=== PATIENT | female | born 1945 | race Caucasian/White ===

== ENCOUNTER → 2017-10-05 | Outpatient (CLI) | payer OTHER ==
[~2017-10-05] MED LIST: ALBUAER2 INH; ALL180 PO; ASPI81TA21 PO; BUDE180I INH; FEXO1TAB49 PO; PLMINUNK INH; PRAVASTATIN PO; VNTHFA/IN INH
--- NOTE | 2017-10-05 13:40 | DIAGNOSTIC IMAGING REPORT ---
CT SCAN OF THE CHEST WITHOUT IV CONTRAST CLINICAL HISTORY: Colon cancer. COMPARISON STUDY: Chest x-ray dated 12/09/2011. Abdominal CT dated 08/08/2012. TECHNIQUE: CT scan of the thorax was performed from the thoracic inlet to the upper abdomen. Images are reviewed in the axial, sagittal, and coronal planes. IV contrast was not administered for this examination as per the referring clinician. A dose lowering technique was utilized adhering to the principles of ALARA. CT DOSE: 337.56 mGycm FINDINGS: Thyroid: Imaged portions of the thyroid gland are normal in size and attenuation. Thoracic aorta: There is atherosclerotic calcification of the thoracic aorta, which is normal in caliber and demonstrates standard 3-vessel arch anatomy. Heart: The heart is normal in size and without pericardial effusion. The coronary arteries are densely calcified. Lungs and pleural spaces: There is no airspace consolidation or pleural effusion. The trachea and central airways are clear. There is a 10 mm groundglass focus in the right lower lobe seen on image #179. A 6 mm groundglass focus is seen in the right upper lobe on image #89. Mediastinum: There are scattered subcentimeter mediastinal lymph nodes. These are not pathologically enlarged by size criteria. Bre: Not well assessed without IV contrast. Axillae: There is no axillary lymphadenopathy. Upper abdomen: There is a tiny hiatal hernia. Cholecystectomy clips are noted. Skeletal structures: The skeletal structures are osteopenic. Degenerative change and mild hyperkyphosis are seen in the thoracic spine. No lytic or blastic bony lesions are seen. A lipoma is incidentally noted in the left shoulder musculature. IMPRESSION: 1. There is no evidence of intrathoracic metastatic disease. 2. There is a 10 mm groundglass lesion in the right lower lobe. This is not typical for metastatic colon cancer. Although this could represent focal inflammation, a low-grade pulmonary neoplasm could also have this appearance. A 3 month follow-up chest CT is recommended for reassessment. 3. A less well-defined 6 mm groundglass focus is seen in the right upper lobe. Differential considerations are the same and this should also be reassessed at follow-up. Electronically signed by: Prabhu Ramirez M.D. 10/05/2017 1:39 PM Dictated Date/Time: 10/05/2017 1:33 PM
== END | disposition home or self-care (01) ==
LOC: C.CTS 13:04
PROVIDERS: ATTEND Internal Medicine Hematology & Oncology
DX: C18.2 Malignant neoplasm of ascending colon (principal)

== ENCOUNTER 2017-10-10 05:07 | Inpatient (IN) | payer OTHER ==
[2017-10-05 12:03] VITALS: BMI 26.0
--- NOTE | 2017-10-05 12:28 | PAT Medication Instructions ---
Service Date Oct 05, 2017. Current Home Medication List Albuterol Hfa (Ventolin Hfa), 2 PUFFS INH Q6H PRN for PRN Budesonide (Inhalation) (Pulmicort Flexhaler), 2 PUFFS INH BID PRN for PRN Fexofenadine Hcl (Verito Allergy), 1 TAB PO PRN [Pravastatin], 10 MG PO QPM Medication Instructions For Your Scheduled Surgery - Hold the following medications the morning of surgery: Fexofenadine Hcl (Verito Allergy), 1 TAB PO PRN - Take the following medications the morning of surgery with a sip of water: Albuterol Hfa (Ventolin Hfa), 2 PUFFS INH Q6H PRN for PRN (if needed) Budesonide (Inhalation) (Pulmicort Flexhaler), 2 PUFFS INH BID PRN for PRN (if needed) - Take the following medications as scheduled the night before surgery: [Pravastatin], 10 MG PO QPM Fexofenadine Hcl (Verito Allergy), 1 TAB PO PRN (if needed) Albuterol Hfa (Ventolin Hfa), 2 PUFFS INH Q6H PRN for PRN (if needed) Budesonide (Inhalation) (Pulmicort Flexhaler), 2 PUFFS INH BID PRN for PRN (if needed) If you have any questions please call us at [phone] or [phone] or [phone]
[2017-10-05 13:42] LABS: BASO % 0.3 %; BASO ABS # 0.02 K/uL (0-0.2); EOS % 2.9 %; EOS ABS # 0.21 K/uL (0-0.5); HEMOGLOBIN 13.5 g/dL (12.0-16.0); IG# 0.01 K/uL (0.00-0.02); LYMPH % 24.8 %; MEAN CELL VOLUME 82.2 fL (80-100); MEAN CORPUSCULAR HEMOGLOBIN 27.1 pg (25-34); MEAN CORPUSCULAR HGB CONC 32.9 g/dl (32-36); MONO % 8.6 %; MONO ABS # 0.62 K/uL (0.11-0.59); NEUT % 63.3 %; NEUT ABS # 4.59 K/uL (1.4-6.5); PLATELET COUNT 299 K/uL (130-400); RED CELL DISTRIBUTION WIDTH CV 13.5 % (11.5-14.5); RED CELL DISTRIBUTION WIDTH SD 40.9 fL (36.4-46.3); WHITE BLOOD COUNT 7.25 K/uL (4.8-10.8)
[2017-10-05 14:19] LABS: ALBUMIN 3.9 gm/dl (3.4-5.0); TOTAL PROTEIN 7.8 gm/dl (6.4-8.2)
[~2017-10-10] VITALS: Ht 170.2 cm; Wt 76.5 kg
[2017-10-10] VITALS (11 sets, daily range): BP systolic 120–149; BP diastolic 63–82; PULSE 74–104; TEMP 36.3–37.2; O2SAT 93–99; Ht 170.2 cm; Wt 76.5 kg
[~2017-10-10 05:07] MED LIST changes: -ALBUAER2 INH; -ALL180 PO; -ASPI81TA21 PO; -PLMINUNK INH
[2017-10-10] MEDS ORDERED: LACTATED RINGER'S 1000ML 1,000 ML IV SCH (06:00)
[2017-10-10] MEDS ORDERED: ACETAMINOPHEN 1000 MG/100 ML IV IV ONE (06:33)
--- NOTE | 2017-10-10 06:33 | History & Physical Bridge Note ---
H&P Re-Evaluation Bridge Note: I have examined the patient, reviewed the History & Physical and in the interval since the performance of the History & Physical I have noted the following changes of clinical significance: No changes noted family at bedside, all questions answered multiple allergies but can take cephalosporin given before dental procedures
[2017-10-10] MEDS ORDERED: MIDAZOLAM HCL 1 MG/ML 2ML VIAL ONE (06:36)
[2017-10-10] MEDS ORDERED: NEOSTIGMINE METHYLSULFATE 5 MG/5 ML SYR ONE (06:36)
[2017-10-10] MEDS ORDERED: HYDROmorphone INJ 2 MG/ML SYR/VIAL ONE (06:36)
[2017-10-10] MEDS ORDERED: FENTANYL CITRATE INJ 50 MCG/1 ML 2 ML VIAL ONE ×4 (06:36→10:01)
[2017-10-10] MEDS ORDERED: ONDANSETRON INJ 2 MG/ML 2 ML VIAL ONE (06:36)
[2017-10-10] MEDS ORDERED: LIDOCAINE HCL 2% 2 ML VIAL (20MG/ML) ONE (06:36)
[2017-10-10] MEDS ORDERED: GLYCOPYRROLATE INJ 0.2 MG/ML VIAL ONE (06:36)
[2017-10-10] MEDS ORDERED: DEXAMETHASONE SOD INJ 4 MG/ML VIAL ONE (06:36)
[2017-10-10] MEDS ORDERED: PROPOFOL IV EMULSION 10 MG/ML 20 ML VIAL IV ONE (06:36)
[2017-10-10] MEDS ORDERED: KETAMINE HCL INJ 50 MG/ML 10 ML VIAL ONE (06:45)
[2017-10-10] MEDS ORDERED: BUPIVACAINE 0.5 % 5 MG/1 ML MPF 30ML VIAL ONE (06:47)
[2017-10-10] MEDS ORDERED: PHENYLEPHRINE 100MCG/ML 5ML SYR ONE (07:30)
[2017-10-10] MEDS ORDERED: EpHEDrine SULFATE INJ 50 MG/ML AMP IV PRN (08:15)
[2017-10-10] MEDS ORDERED: FENTANYL CITRATE INJ 50 MCG/1 ML 2 ML VIAL IV PRN (08:15)
[2017-10-10] MEDS ORDERED: ONDANSETRON INJ 2 MG/ML 2 ML VIAL IV PRN ×2 (08:15→10:00)
[2017-10-10] MEDS ORDERED: MEPERIDINE HCL 25 MG/ML CARP IV PRN (08:15)
[2017-10-10] MEDS ORDERED: LABETALOL HCL IV 5 MG/ML 20ML IV PRN (08:15)
[2017-10-10] MEDS ORDERED: ATROPINE SULFATE 0.1 MG/ML 5ML SYR IV PRN (08:15)
[2017-10-10] MEDS ORDERED: KETOROLAC TROMETHAMINE 30 MG/ML VIAL ONE (09:08)
--- NOTE | 2017-10-10 09:33 | [facility] Post Operative Brief Note ---
Immediate Operative Summary Operative Date Oct 10, 2017. Pre-Operative Diagnosis colon cancer Post-Operative Diagnosis Right Colon Cancer Procedure(s) Performed Laparoscopic Assisted Extended Radical Right Colectomy Surgeon Dr. Silviano Woody Rate Supervisor Surgeon(s) Cait Beth PA-C Estimated Blood Loss 150ml Findings See Below as preop Specimens Fresh: A.) Possible Peritoneal Implant B.) Right Colon Drains 1/4 in alec sub cut Anesthesia Type General
[2017-10-10] MEDS ORDERED: KETOROLAC TROMETHAMINE 30 MG/ML VIAL IV. PRN (10:00)
--- NOTE | 2017-10-10 11:18 | Anesthesiology Progress Note ---
Anesthesia Post Op Note Date & Time Oct 10, 2017 at 11:17 Vital Signs Pain Intensity: 4 Vital Signs Past 12 Hours Date Time Temp Pulse Resp B/P (MAP) Pulse Ox O2 Delivery O2 Flow Rate FiO2 10/10/17 11:06 125/75 10/10/17 11:02 98 17 99 10/10/17 11:02 97 17 10/10/17 11:01 138/63 10/10/17 10:57 86 15 10/10/17 10:57 87 15 99 10/10/17 10:56 121/69 10/10/17 10:54 36.2 10/10/17 10:52 109 14 98 10/10/17 10:52 101 14 10/10/17 10:51 138/73 10/10/17 10:47 95 16 10/10/17 10:47 94 16 98 10/10/17 10:46 123/63 10/10/17 10:42 98 12 10/10/17 10:42 98 12 97 10/10/17 10:41 133/71 10/10/17 10:37 103 13 98 10/10/17 10:37 102 13 10/10/17 10:36 134/61 10/10/17 10:32 97 16 97 10/10/17 10:32 97 16 10/10/17 10:31 133/72 10/10/17 10:27 96 16 10/10/17 10:27 96 16 96 10/10/17 10:26 125/67 10/10/17 10:22 91 13 99 10/10/17 10:22 91 13 10/10/17 10:21 92 12 125/71 99 10/10/17 10:21 92 12 10/10/17 10:16 101 17 10/10/17 10:16 101 17 142/70 99 10/10/17 10:11 89 12 129/67 99 10/10/17 10:11 89 12 10/10/17 10:10 97 12 10/10/17 10:10 97 12 97 10/10/17 10:06 120/57 10/10/17 10:05 66 17 10/10/17 10:05 66 17 99 10/10/17 10:01 119/60 10/10/17 10:00 69 19 98 10/10/17 10:00 70 19 10/10/17 09:56 136/61 10/10/17 09:55 94 15 98 10/10/17 09:55 94 15 10/10/17 09:51 140/68 10/10/17 09:50 36.6 88 12 140/68 98 Oxymask 15 10/10/17 05:49 36.9 85 16 143/74 97 Room Air Notes Mental Status: alert / awake / arousable, participated in evaluation Pt Amnestic to Procedure: Yes Nausea / Vomiting: adequately controlled Pain: adequately controlled Airway Patency, RR, SpO2: stable & adequate BP & HR: stable & adequate Hydration State: stable & adequate Anesthetic Complications: no major complications apparent
--- NOTE | 2017-10-10 11:58 | OPERATIVE REPORT ---
DATE OF OPERATION: 10/10/2017 SURGEON: Dr. Woody. REAL ESTATE CONSULTANT: Cait Beth PA-C. PREOPERATIVE DIAGNOSIS: Biopsy-proven adenocarcinoma ascending colon. POSTOPERATIVE DIAGNOSIS: Same with dense abdominal adhesions. PROCEDURE: Laparoscopic assisted extended right colon resection with primary [id number] anastomosis. SUMMARY: The patient was brought into the operating room theater. Cash catheter had been inserted. The abdomen was prepped with Betadine solution and properly draped. We made a small incision, about an inch and a half long to 2 inches around the umbilicus in a linear fashion, deepened to subcutaneous tissue. We entered the fascia where 0 Vicryl suture was used to control the pneumoperitoneum. We entered the peritoneal cavity under direct visualization with a 5 mm trocar without the sharp edge. CO2 insufflated. We placed a camera into the abdomen. A large omentum was appreciated. Did not see evidence of any dye or tattoo on the abdominal wall or in the parietal peritoneum. We at this point tried to inspect the colon. We could see the sigmoid colon which was grossly normal, because this had an evidence, apparently when she had colonoscopy, they said she had diffuse Crohn's disease, biopsies were taken. In the right upper quadrant, we started from the cecal area going all the way up toward the right upper quadrant. I could not identify either the lesion or the tattoo, it was not obvious from our point. We tried to maneuver the omentum that was adherent to the right upper quadrant area but it was pretty much frozen onto the undersurface of the liver. The patient has had a previous laparoscopic cholecystectomy that apparently was acutely inflamed at the time. At this point, I enlarged the incision, then I converted to an open procedure so we can actually dissect more specifically in the right upper quadrant. We started from the white line of Toldt and the peritoneal area and around the cecum and maneuvered our way up. We brought up the terminal ileum. The appendix was quite long, we were able to bring it back up along with the cecum. We then took our dissection up to the hepatic flexure where we could feel a lesion, an apple core lesion that was just proximal to the hepatic flexure, did not see the tattoo yet. We then dissected out some omental adhesions to the undersurface of the liver until finally we were able to free up the hepatic flexure that was underneath the liver, completely stuck in there, we could see the tattooed zoe. The tattoo was approximately 2 inches away from the lesion. We then dissected out the greater omentum to the middle colic area, completely elevating the right side of colon, the terminal ileum, dissecting out, avoiding the duodenum. There was a small bleeding vessel, a little venous ooze right on top of the duodenal medially which was a pancreatic branch that we needed to ligate with 2-0 silk on multiple times but we got that under control. At this point, we scored the mesentery to the terminal ileum where we divided with a VINNY stapler. The mesentery was taken down all the way to the root of the mesentery to right of middle colic where another VINNY stapler was used to free up the colon. Each points of resection were tied with 2-0 silk and left long to zoe the root of the mesentery. The specimen was removed. At this point, we brought the 2 edges together by first closing the peritoneum with interrupted 3-0 silk suture, then the 2 sides, the stapled side, an end-to-end anastomosis was done by first oversewing the staple line with interrupted 3-0 silk suture, then we did a [id number] 3-0 chromic inner side, 3-0 silk outer layer to complete [id number] ileocolonic anastomosis. Checked for patency, appeared satisfactory. We paid special attention in the quadrants to avoid any tension. We checked line of mesentery, more specifically returned the viscera in normal anatomic position. I placed an NG tube and it was adequate in the stomach at 55 from the naris. The area was then checked for hemostasis, irrigated, and appeared satisfactory. I did not feel anything else in the mesentery and we noticed there was one specific node when we first went in, but I was not sure if this was a metastatic node or some deposit from previous gallbladder, that we sent separately. The abdomen was then closed with interrupted #1 PDS, quarter-inch Sarahi placed subcu, alejandrina for skin edges. Dressing was applied. The procedure was tolerated well by the patient. Estimated blood loss approximately 150 mL. The patient was taken to recovery room in good condition. I attest to the content of the Intraoperative Record and any orders documented therein. Any exception s are noted below.
[2017-10-10] MEDS ORDERED: NURSING VERBAL MED ORDER ONE ×3 (12:00→19:45)
[2017-10-10] MEDS: KETOROLAC TROMETHAMINE 15 MG/ML VIAL IV. PRN ×3 (12:01→22:26)
[2017-10-10] MEDS: LACTATED RINGER'S 1000ML 1,000 ML IV SCH ×2 (12:02→20:15)
[2017-10-10] MEDS ORDERED: ACETAMINOPHEN IV 1000MG/100ML IV PRN (12:15)
[2017-10-10 12:29] LABS: INR 1.1 (0.9-1.1); PTT PATIENT 24.9 SECONDS (21.0-31.0)
[2017-10-10] MEDS: CEFOXITIN IV 2,000 MG in DEXTROSE 5% 50ML 50 ML IV SCH ×2 (13:22→18:05)
[2017-10-10] MEDS ORDERED: NURSING VERBAL MED ORDER STA (13:49)
[2017-10-10] MEDS ORDERED: KETOROLAC TROMETHAMINE 15 MG/ML VIAL IV. ONE (14:15)
[2017-10-10] MEDS ORDERED: LORAZEPAM INJ 0.5 MG in SYRINGE 0.25 ML IV PRN (14:45)
[2017-10-10] MEDS ORDERED: LORAZEPAM INJ 0.5 MG in SYRINGE 0.25 ML IV STA (14:46)
--- NOTE | 2017-10-10 14:59 | Anesthesiology Progress Note ---
Anesthesia Progress Note Date of Service Oct 10, 2017. Progress Notes Called by surgeon for pt c/o pain. Pt reports "anaphylaxis" from morphine administration yrs ago. On further questioning, pt and family describes profound fall in blood pressure related to any narcotic and has thus far have declined narcotic analgesia. She has been treated with ketorolac and iv acetaminophen. (It is noted that pt had fentanyl in OR and PACU without side effects. However, protocol does not permit fentanyl use on Med-surg unit.) I discussed with pt potential for transfer to SICU for fentanyl IV hand cloth examiner administration. I also suggested a small dose of narcotic (e.g. meperidine) be titrated with close monitoring of vitals. Pt declined to consent to either of these options. I then suggested a small dose of sedation to synergize with analgesics. Pt agreed. Lorazepam 0.5 mg IV stat then q8h prn ordered. Notify anesthesiologist special education instructor if further input is required.
[2017-10-10] MEDS: HEPARIN SOD 5000 UNIT/0.5 ML CARP SQ SCH (15:34)
[2017-10-10] MEDS ORDERED: NURSING VERBAL MED ORDER SCH (18:00)
[2017-10-10] MEDS: ACETAMINOPHEN IV 1000MG/100ML IV SCH (18:05)
[2017-10-11] MEDS: HEPARIN SOD 5000 UNIT/0.5 ML CARP SQ SCH ×4 (00:11→23:15)
[2017-10-11] MEDS: ACETAMINOPHEN IV 1000MG/100ML IV SCH ×4 (02:40→18:28)
[2017-10-11 03:27] VITALS: BP 131/62; PULSE 75; TEMP 37.1; O2SAT 96
[2017-10-11] MEDS: LACTATED RINGER'S 1000ML 1,000 ML IV SCH ×2 (04:55→12:24)
[2017-10-11 06:37] LABS: BASO % 0.1 %; BASO ABS # 0.01 K/uL (0-0.2); HEMATOCRIT 33.3 % (37-47); IG# 0.06 K/uL (0.00-0.02); LYMPH ABS # 0.91 K/uL (1.2-3.4); MEAN CORPUSCULAR HEMOGLOBIN 26.8 pg (25-34); MEAN PLATELET VOLUME 9.9 fL (7.4-10.4); MONO % 5.7 %; MONO ABS # 1.03 K/uL (0.11-0.59); NEUT % 88.9 %; NEUT ABS # 16.09 K/uL (1.4-6.5); PLATELET COUNT 272 K/uL (130-400); RED CELL DISTRIBUTION WIDTH CV 13.6 % (11.5-14.5); RED CELL DISTRIBUTION WIDTH SD 40.5 fL (36.4-46.3)
[2017-10-11 07:14] LABS: CALCIUM 8.9 mg/dl (8.5-10.1); CREATININE 0.74 mg/dl (0.60-1.20); POTASSIUM 4.4 mmol/L (3.5-5.1)
[2017-10-11 07:17] VITALS: BP 132/64; PULSE 73; TEMP 36.9; O2SAT 97
--- NOTE | 2017-10-11 07:33 | SURGERY PROGRESS NOTE ---
DATE: 10/11/2017 Miriam is resting comfortably, significant other is at bedside. She is alert, coherent. She had some pain postoperatively yesterday which was sort of expected in the sense THAT SHE IS ALLERGIC TO MULTIPLE ANALGESICS. WE HAD GIVEN HER TORADOL AND ACETAMINOPHEN. We had anesthesia also see her. We checked on her later in the afternoon and seemed to be sleeping. At this point, she is resting comfortably. She has not been out of bed. Intraoperative findings were discussed with her. Her last vitals showed a temperature of 36.9, pulse 73, respirations 16, blood pressure 132/64, O2 sats 97 on room air. Urine output was 400 overnight. NG was minimal, 280, slightly coffee-ground. Her abdomen is completely benign. Laboratory schreiber, BUN is 13, creatinine 0.74, hemoglobin is 11, elevated white count of 18.10 with a left shift. At this point, we will discontinue the NG tube and discontinue the Cash, increase activity, start her on some clear liquids. Hopefully, by getting her around, she may have more relief of her postoperative pain, although at this time she seems to be comfortable.
[2017-10-11 08:00] VITALS: BP 146/60; PULSE 74; TEMP 37; O2SAT 97
--- NOTE | 2017-10-11 08:08 | Anesthesiology Progress Note ---
Anesthesia Post Op Note Date & Time Oct 11, 2017 at 08:07 Vital Signs Pain Intensity: 8.0 Vital Signs Past 12 Hours Date Time Temp Pulse Resp B/P (MAP) Pulse Ox O2 Delivery O2 Flow Rate FiO2 10/11/17 07:17 36.9 73 16 132/64 (86) 97 Room Air 10/11/17 03:27 37.1 75 14 131/62 (85) 96 Nasal Cannula 2.0 10/10/17 23:53 37.2 75 14 132/63 (86) 96 Nasal Cannula 2.0 10/10/17 23:45 Nasal Cannula 2.0 Notes Mental Status: alert / awake / arousable, participated in evaluation Pt Amnestic to Procedure: Yes Nausea / Vomiting: adequately controlled Pain: adequately controlled Airway Patency, RR, SpO2: stable & adequate BP & HR: stable & adequate Hydration State: stable & adequate Anesthetic Complications: no major complications apparent
[2017-10-11] MEDS: KETOROLAC TROMETHAMINE 15 MG/ML VIAL IV. PRN ×2 (08:27→12:24)
--- NOTE | 2017-10-11 10:45 | Clinical Documentation Query ---
CULLEN Brown : CLINICAL DOCUMENTATION QUERY Patient is a 71 year old female who underwent Laparoscopic Assisted Extended Radical Right Colectomy for right colon cancer. Specimen obtained during procedure included "possible peritoneal implant". As appropriate, consider explicit documentation of the nature of this tissue as although implicit, cannot be assumed by the professional medical biller coder. Thank you. In your clinical opinion is this patient being managed for: ( x) (Possible/Suspected) Peritoneum metastasis ( ) Not Agree ( ) Other explanation of clinical findings (Please Explain) ( ) Unable to determine (Please Define) ( ) Need to Discuss The medical record reflects the following clinical findings, treatment, and risk factors. Clinical Indicators: As above Treatment: Pathology pending Risk Factors: Colon cancer Please clarify and document your clinical opinion in the progress notes and discharge summary. Terms such as "probable", "suspected", "likely", "questionable", "possible", or "still to be ruled out" are acceptable. IF IN AGREEMENT, YOU MUST DOCUMENT ABOVE DIAGNOSTIC STATEMENT IN DAILY PROGRESS NOTES AND DISCHARGE SUMMARY. This document is not part of the patient's record. Thank You, Hugh Smith, JAYA [phone]
[2017-10-11 11:12] VITALS: O2SAT 92
[2017-10-11 15:29] VITALS: BP 141/60; PULSE 80; TEMP 37; O2SAT 96
[2017-10-11] MEDS ORDERED: NURSING VERBAL MED ORDER ONE ×2 (16:30→18:15)
[2017-10-11] MEDS: KETOROLAC TROMETHAMINE 15 MG/ML VIAL IV. SCH ×3 (16:32→23:13)
[2017-10-11] MEDS ORDERED: DiphenhydrAMINE HCL 50 MG/ML VIAL IV ONE (18:30)
[2017-10-11] MEDS ORDERED: DiphenhydrAMINE HCL 50 MG/ML VIAL IV PRN (18:30)
[2017-10-11 23:24] VITALS: BP 132/61; PULSE 67; TEMP 37; O2SAT 93
[2017-10-12] MEDS: ACETAMINOPHEN IV 1000MG/100ML IV SCH ×3 (01:59→18:57)
[2017-10-12] MEDS: KETOROLAC TROMETHAMINE 15 MG/ML VIAL IV. SCH (04:27)
[2017-10-12] MEDS ORDERED: FENTANYL 50 MCG/HR TDSY TD SCH (06:15)
[2017-10-12] MEDS: LACTATED RINGER'S 1000ML 1,000 ML IV SCH (06:39)
[2017-10-12 06:42] LABS: BASO % 0.1 %; BASO ABS # 0.01 K/uL (0-0.2); EOS % 0.1 %; EOS ABS # 0.01 K/uL (0-0.5); HEMOGLOBIN 10.3 g/dL (12.0-16.0); IG# 0.04 K/uL (0.00-0.02); LYMPH % 15.6 %; LYMPH ABS # 2.26 K/uL (1.2-3.4); MEAN CELL VOLUME 83.3 fL (80-100); MEAN CORPUSCULAR HGB CONC 31.2 g/dl (32-36); MEAN PLATELET VOLUME 9.9 fL (7.4-10.4); MONO % 7.3 %; MONO ABS # 1.06 K/uL (0.11-0.59); NEUT % 76.6 %; NEUT ABS # 11.09 K/uL (1.4-6.5); PLATELET COUNT 240 K/uL (130-400); RED CELL DISTRIBUTION WIDTH CV 13.9 % (11.5-14.5); RED CELL DISTRIBUTION WIDTH SD 42.4 fL (36.4-46.3); WHITE BLOOD COUNT 14.47 K/uL (4.8-10.8)
--- NOTE | 2017-10-12 06:46 | SURGERY PROGRESS NOTE ---
DATE: 10/12/2017 Miriam is second postoperative day status post laparoscopic assisted right colon resection. She is doing very well. She is having minimal abdominal discomfort at this time. She stated she has passed some flatus and had some liquid stools. The only concern she had is that the Toradol may be causing her some allergy. SHE IS ALLERGIC TO MULTIPLE ANALGESICS. We tried everything. She did have some fentanyl intraoperatively. Anesthesia did not notice any reaction. We will try fentanyl patch and see if we can palliate her. She tolerated some liquids yesterday, will advance it. The laboratory studies this morning is pending. Her abdomen is completely benign. The dressing is changed. She has a Mason in the subQ that we will remove tomorrow. Overall, she is doing very well.
[2017-10-12] MEDS ORDERED: FENTANYL PATCH REMOVE & WASTE SCH (06:59)
[2017-10-12] MEDS ORDERED: FENTANYL 25 MCG/HR TDSY TD SCH (07:00)
[2017-10-12 07:10] LABS: CALCIUM 8.6 mg/dl (8.5-10.1); CREATININE 0.65 mg/dl (0.60-1.20)
[2017-10-12 07:23] VITALS: BP 152/71; PULSE 67; TEMP 36.9; O2SAT 93
[2017-10-12] MEDS: HEPARIN SOD 5000 UNIT/0.5 ML CARP SQ SCH ×3 (07:38→23:41)
[2017-10-12] MEDS: CHECK FENTANYL PATCH PLACEMENT SCH ×3 (07:40→23:40)
[2017-10-12 15:00] VITALS: BP 127/61; PULSE 57; TEMP 36.8; O2SAT 93
[2017-10-12 23:11] VITALS: BP 112/57; PULSE 69; TEMP 36.8; O2SAT 99
[2017-10-13] MEDS: LACTATED RINGER'S 1000ML 1,000 ML IV SCH (02:09)
[2017-10-13] MEDS: ACETAMINOPHEN IV 1000MG/100ML IV SCH (02:12)
[2017-10-13 05:17] LABS: BASO % 0.2 %; BASO ABS # 0.02 K/uL (0-0.2); EOS % 3.2 %; EOS ABS # 0.32 K/uL (0-0.5); HEMATOCRIT 30.1 % (37-47); HEMOGLOBIN 9.3 g/dL (12.0-16.0); IG# 0.03 K/uL (0.00-0.02); LYMPH % 39.8 %; LYMPH ABS # 3.92 K/uL (1.2-3.4); MEAN CELL VOLUME 83.8 fL (80-100); MEAN CORPUSCULAR HEMOGLOBIN 25.9 pg (25-34); MEAN CORPUSCULAR HGB CONC 30.9 g/dl (32-36); MEAN PLATELET VOLUME 9.7 fL (7.4-10.4); MONO % 6.7 %; MONO ABS # 0.66 K/uL (0.11-0.59); NEUT % 49.8 %; NEUT ABS # 4.91 K/uL (1.4-6.5); PLATELET COUNT 227 K/uL (130-400); RED CELL DISTRIBUTION WIDTH CV 13.8 % (11.5-14.5); RED CELL DISTRIBUTION WIDTH SD 42.6 fL (36.4-46.3); WHITE BLOOD COUNT 9.86 K/uL (4.8-10.8)
[2017-10-13 05:43] LABS: CALCIUM 8.3 mg/dl (8.5-10.1); CREATININE 0.59 mg/dl (0.60-1.20); POTASSIUM 4.4 mmol/L (3.5-5.1)
[2017-10-13 07:15] VITALS: BP 144/75; PULSE 67; TEMP 37.1; O2SAT 93
[2017-10-13 07:35] VITALS: O2SAT 93
[2017-10-13] MEDS: CHECK FENTANYL PATCH PLACEMENT SCH (07:37)
[2017-10-13] MEDS: HEPARIN SOD 5000 UNIT/0.5 ML CARP SQ SCH (07:49)
--- NOTE | 2017-10-13 08:03 | SURGERY PROGRESS NOTE ---
DATE: 10/13/2017 Miraim is third postoperative day status post laparoscopic-assisted extended right colon resection for an adenocarcinoma. She has done well, in fact, she has been able to manage her pain with fentanyl patch and some Tylenol. This morning, she is resting comfortably. She feels great. She is tolerating her diet. Her bowels are moving. She feels no real pain. The last vitals showed a temperature of 36.8, pulse 69, respirations 16, blood pressure 112/57, and O2 sats 99 on room air. Laboratory schreiber, BUN is 13, creatinine is 0.59, hemoglobin has dropped down to about 9.3, this is part dilutional and part loss intraoperatively. She is probably 4 liters overloaded, but she is diuresing well and I expect that would come up. She is not lightheaded when she gets up. Her abdomen is completely benign. The Sarahi from the subQ was removed, redressed. From my point of view, we will check her again later this afternoon, but she could probably be discharged. Instructions were to see her back in the office in [address] She should not drive for 1 week. Do not lift anything heavier than 10 pounds. Her path report is pending. The other issue is apparently she was given some medicine by the deli cutter slicer at the time of the initial colonoscopy, random biopsy of the colon. They thought she had Crohn's colitis. She had no real symptoms of that preoperatively. She really has not experienced anything postoperatively and I would wait for the final path before treating pt for Crohn 's. GISELLE
--- NOTE | 2017-10-13 08:33 | Discharge Instructions ---
Discharge Instructions Date of Service Oct 13, 2017. Admission Reason for Admission: Adenocarcinoma Of Colon Discharge Discharge Diagnosis / Problem: right colectomy Discharge Goals Goal(s): Improve disease control Activity Recommendations Activity Limitations: as noted below Lifting Limitations: no more than 10 pounds Shower/Bathe: no limitations Driving or Machine Use: resume 3 days after discharge . Instructions / Follow-Up Instructions / Follow-Up Dr. Woody in 1 week, call [phone] to schedule Current Hospital Diet Patient's current hospital diet: Low Fiber Diet Discharge Diet Recommended Diet: Regular Diet Procedures Procedures Performed: Laparoscopic Assisted Extended Radical Right Colectomy Pending Studies Studies pending at discharge: yes List of pending studies: pathology Medical Emergencies . Who to Call and When: Medical Emergencies: If at any time you feel your situation is an emergency, please call 911 immediately. . Non-Emergent Contact Non-Emergency issues call your: Surgeon Call Non-Emergent contact if: you have a fever, temperature is above 101.5, your pain is not controlled, wound has increased drainage, wound has increased redness, you have any medication questions . "Provider Documentation" section prepared by Lexa Lord. . [place] Drug Monitoring Program Search Results: no issues identified
[2017-10-13] MEDS: ACETAMINOPHEN 325 MG TAB PO SCH ×2 (08:44→11:30)
[2017-10-13 09:29] VITALS: BP 144/75; PULSE 67; TEMP 37.1; O2SAT 93
--- NOTE | 2017-10-16 11:20 | DISCHARGE SUMMARY ---
PRIMARY DISCHARGE DIAGNOSES: 1. Adenocarcinoma, right colon. 2. Postoperative anemia. SECONDARY DISCHARGE DIAGNOSES: 1. Asthma. 2. Dyslipidemia. PROCEDURE PERFORMED: Laparoscopic-assisted extended right colon resection with primary [id number] anastomosis. HOSPITAL COURSE: The patient is a 72-year-old female with biopsy proven adenocarcinoma of the right colon, brought in through same day and taken to the operating room for right hemicolectomy. The procedure was well tolerated. She was transferred to the surgical floor. Nasogastric tube was removed on postoperative day 1. She was started on clear liquids. She HAS MULTIPLE ALLERGIES, had been given Toradol postoperatively. She developed some itching after a dose of Toradol, which was then discontinued. She was put on a fentanyl patch on postoperative day 2. She had tolerated fentanyl intraoperatively. By that time, she had some returning bowel function, was having liquid bowel movements. She was able to tolerate an advancing diet over the next day. On postoperative day 3, she was tolerating regular diet. Her pain was managed with a fentanyl patch. Sarahi drain was removed from the incision. Her hemoglobin had drifted to 9 but she remained asymptomatic and her vitals were stable. She remained in positive fluid balance also. She did not require transfusion. She was stable for discharge in the afternoon. DISCHARGE INSTRUCTIONS: Discharge home. Follow up with Dr. Woody in 1 week. DISCHARGE MEDICATIONS: Continue her current fentanyl patch, which can be removed on Monday morning. She may take Tylenol or ibuprofen as needed. Continue her home medications, Ventolin 2 puffs q. 6 hours as needed, Pulmicort 2 puffs b.i.d. as needed, Verito 180 mg daily, and pravastatin 10 mg daily. PATHOLOGY: Right colon showed a 4.5-cm poorly differentiated adenocarcinoma that invaded through the muscularis propria into the pericolic soft tissue. Margins were uninvolved. Two lymph nodes contained metastatic disease (10/05) . MTDD
== END 2017-10-13 16:39 | disposition home or self-care (01) | DRG 330 ==
LOC: C.ACU 05:07 → C.MSW 06:20 → ENRESERV 10:18
PROVIDERS: ADMIT Surgery; ATTEND Surgery
PROC: 0WBH0ZX Excision of Retroperitoneum, Open Approach, Diagnostic (ICD-10-PCS; principal; 2017-10-10 07:00)
PROC: 0DTF0ZZ Resection of Right Large Intestine, Open Approach (ICD-10-PCS; principal; 2017-10-10 07:00)
DX: C18.2 Malignant neoplasm of ascending colon (principal); C77.2 Secondary and unspecified malignant neoplasm of intra-abdominal lymph nodes; L29.9 Pruritus, unspecified; T40.4X5A Adverse effect of other synthetic narcotics, initial encounter; D64.9 Anemia, unspecified; Z53.31 Laparoscopic surgical procedure converted to open procedure; J45.909 Unspecified asthma, uncomplicated; E78.5 Hyperlipidemia, unspecified; Z79.899 Other long term (current) drug therapy; Z88.0 Allergy status to penicillin; Z88.1 Allergy status to other antibiotic agents; Z88.2 Allergy status to sulfonamides; Z88.5 Allergy status to narcotic agent; Z82.49 Family history of ischemic heart disease and other diseases of the circulatory system; Z82.3 Family history of stroke

== ENCOUNTER → 2017-11-07 | Day surgery (SDC) | payer OTHER ==
[2017-11-03 10:07] VITALS: Ht 170.2 cm; Wt 70.9 kg
[~2017-11-07] VITALS: Ht 170.2 cm; Wt 70.9 kg
[~2017-11-07] MED LIST changes: +ATROPINE SULFATE 0.1 MG/ML 5ML SYR IV PRN; +BACITRACIN 50000 UNIT VIAL ONE; +EpHEDrine SULFATE INJ 50 MG/ML AMP IV PRN; +FENTANYL CITRATE INJ 50 MCG/1 ML 2 ML VIAL IV PRN; +FENTANYL CITRATE INJ 50 MCG/1 ML 2 ML VIAL ONE; +IBUPROFEN 600 MG TAB ONE; +LACTATED RINGER'S 1000ML 1,000 ML IV SCH; +LIDOCAINE HCL 1% 20 ML VIAL ONE; +LIDOCAINE HCL 2% 2 ML VIAL (20MG/ML) ONE; +MIDAZOLAM HCL 1 MG/ML 2ML VIAL ONE; +NURSING VERBAL MED ORDER ONE; +ONDANSETRON INJ 2 MG/ML 2 ML VIAL IV PRN; +ONDANSETRON INJ 2 MG/ML 2 ML VIAL ONE; +OXYC-57 PO; +OXYCODONE/ACETAMINOPHEN 5-325 TAB PO PRN; -PRAVASTATIN PO; +PROPOFOL IV EMULSION 10 MG/ML 20 ML VIAL IV ONE; +PRVC/10 PO
[2017-11-07 07:20] VITALS: BP 129/70; PULSE 103; TEMP 36.7; O2SAT 99
--- NOTE | 2017-11-07 08:01 | Discharge Instructions ---
Discharge Instructions Date of Service Nov 07, 2017. Visit Reason for Visit: Adenocarcinoma Of Colon Discharge Discharge Diagnosis / Problem: A-port Discharge Goals Goal(s): Therapeutic intervention Activity Recommendations Activity Limitations: resume your previous activity Shower/Bathe: tomorrow Anesthesia . Post Anesthesia Instructions: If you have had General Anesthesia or IV Sedation: * Do not drive today. * Resume driving when surgeon permits. * Do not make important decisions or sign legal documents today. * Call surgeon for: 1. Temperature elevations greater than 101 degrees F. 2. Uncontrollable pain. 3. Excessive bleeding. 4. Persistent nausea and vomiting. 5. Medication intolerance (nausea, vomiting or rash). * For nausea and vomiting use only clear liquids such as: tea, soda, bouillon until nausea subsides, then gradually increase diet as tolerated. * If you have any concerns or questions, call your surgeon's office. If physician is unavailable and it is an emergency, call 911 or go to the nearest emergency room. . Instructions / Follow-Up Instructions / Follow-Up Dr. Woody as needed, call [phone] if you any questions It is OK for port to be used Diet Recommendations Recommended Home Diet: no limitations Pending Studies Studies pending at discharge: no Medical Emergencies . Who to Call and When: Medical Emergencies: If at any time you feel your situation is an emergency, please call 911 immediately. . Non-Emergent Contact Non-Emergency issues call your: Surgeon Call Non-Emergent contact if: you have a fever, temperature is above 101.5, your pain is not controlled, wound has increased redness, wound has increased pain . . "Provider Documentation" section prepared by Lexa Lord. .
--- NOTE | 2017-11-07 08:06 | History & Physical Bridge Note ---
H&P Re-Evaluation Bridge Note: I have examined the patient, reviewed the History & Physical and in the interval since the performance of the History & Physical I have noted the following changes of clinical significance: No changes noted will proceed with port placement for chemo, pt a going to [facility] monday for second opinion
--- NOTE | 2017-11-07 08:30 | History and Physical ---
History & Physical Date Nov 07, 2017. Chief Complaint colon cancer need for chemo rx here for port placement History of Present Illness The patient is a 72 year old female here for port placement for chemo Past Medical/Surgical History Surgical Problems: (1) S/P small bowel resection Additional History Hepatic Disease: No Endocrine Disorder: No Kidney Disease: No Hypertension: No Heart Disease: No Bleeding Tendencies: No Infectious Diseases: No Allergies Coded Allergies: Codeine (Verified Allergy, Severe, ANAPHYLAXISIS, 11/07/17) Tramadol (Verified Allergy, Severe, "CODED"-ANAPHYLAXISIS, 11/07/17) Ciprofloxacin (Verified Allergy, Unknown, IRRITATION TO IV SITE-RASH, 11/07) PT EXPERIENCED REDNESS, SWELLING, AND ITCHING TO IV SITE WHILE INFUSING IV CIPRO. IRRITATION HAD RESOLVED AFTER INFUSION STOPPED. Morphine and Related (Verified Allergy, Unknown, ANAPHYLAXISIS, 11/07/17) Penicillins (Verified Allergy, Unknown, HIVES, 11/07/17) Sulfa Drugs (Verified Allergy, Unknown, HIVES, 11/07/17) Home Medications Scheduled Pravastatin Sod (Pravastatin Sodium), 10 MG PO HS Scheduled PRN Albuterol Hfa (Ventolin Hfa), 2 PUFFS INH Q6H PRN for PRN Budesonide (Inhalation) (Pulmicort Flexhaler), 2 PUFFS INH BID PRN for PRN Fexofenadine Hcl (Verito Allergy), 1 TAB PO DAILY PRN for Allergic Reaction Oxycodone/Acetaminophen 5MG/325MG (Percocet 5MG/325MG), 1-2 TABLET PO Q4H PRN for Pain Physical Examination Skin: warm/dry, no rash Eyes: normal inspection, EOMI, sclerae normal ENT: normal ENT inspection, pharynx normal Head: normocephalic, atraumatic Neck: supple, no adenopathy, trachea midline Respiratory/Chest: lungs clear, normal breath sounds, no respiratory distress Cardiovascular: regular rate, rhythm, no edema, no murmur Abdomen / GI: + pertinent finding (midline periumbilical incision healed well) Back: normal inspection Extremities: normal inspection, normal range of motion Neurologic/Psych: no motor/sensory deficits, alert, normal reflexes, oriented x 3 Diagnosis colon cancer need for chemo here for port placement Plan of Treatment port placement r and c explained to pt and daughter (nurse)
--- NOTE | 2017-11-07 09:50 | [facility] Post Operative Brief Note ---
Immediate Operative Summary Operative Date Nov 07, 2017. Pre-Operative Diagnosis Need for Long-Term Intravenous Access Post-Operative Diagnosis Need for Long-Term Intravenous Access Procedure(s) Performed Insertion of Infusaport Left Internal Jugular Surgeon Dr. Woody Circuitry Negative Inspector Surgeon(s) none Estimated Blood Loss 20ML Findings See Below as preop Specimens none per surgeon Anesthesia Type MAC
--- NOTE | 2017-11-07 10:18 | Anesthesiology Progress Note ---
Anesthesia Post Op Note Date & Time Nov 07, 2017 at 10:18 Vital Signs Pain Intensity: 0 Vital Signs Past 12 Hours Date Time Temp Pulse Resp B/P (MAP) Pulse Ox O2 Delivery O2 Flow Rate FiO2 11/07/17 10:15 36.4 77 16 130/71 99 Room Air 11/07/17 10:05 82 16 132/66 96 Room Air 11/07/17 09:55 36.4 88 16 121/70 98 Room Air 11/07/17 07:20 36.7 103 18 129/70 (89) 99 Room Air Notes Mental Status: alert / awake / arousable, participated in evaluation Pt Amnestic to Procedure: Yes Nausea / Vomiting: adequately controlled Pain: adequately controlled Airway Patency, RR, SpO2: stable & adequate BP & HR: stable & adequate Hydration State: stable & adequate Anesthetic Complications: no major complications apparent
[2017-11-07 10:25] VITALS: BP 134/66; PULSE 110; TEMP 36.5; O2SAT 100
--- NOTE | 2017-11-07 10:26 | DIAGNOSTIC IMAGING REPORT ---
CHEST ONE VIEW PORTABLE CLINICAL HISTORY: port placement COMPARISON STUDY: Chest CT October 05, 2017. FINDINGS: There is no pneumothorax following placement of a left internal jugular [id number]. Catheter is intact. Catheter tip projects over the cavoatrial junction or proximal right atrium. There is no evidence for pulmonary edema. No consolidation is present. There are cholecystectomy clips. IMPRESSION: No pneumothorax following placement of a left internal jugular [id number]. Electronically signed by: nAshul Nuñez M.D. 11/07/2017 10:24 AM Dictated Date/Time: 11/07/2017 10:23 AM
--- NOTE | 2017-11-07 10:48 | OPERATIVE REPORT ---
DATE OF OPERATION: 11/07/2017 SURGEON: Dr. Woody. PREOPERATIVE DIAGNOSIS: Adenocarcinoma of the colon, need for chemotherapy. POSTOPERATIVE DIAGNOSIS: Same. PROCEDURE: A-port placement, MRI compatible, in the left internal jugular. SUMMARY: The patient was brought into the operating room theater, roll placed underneath her shoulders. Left chest and neck were prepped with Betadine scrubbing solution and properly draped. Systemic antibiotics were given. Local anesthetic 1% Xylocaine with epinephrine used to infiltrate the angle of the clavicle. Placed the patient in Trendelenburg position. We tried to access the subclavian vein x2 with very little return appreciated as far as venous return. At this point, we went on and did the internal jugular stick by using more local between 2 heads of sternocleidomastoid using a small 23-gauge needle to try to identify the vein, followed by the larger needle, easily appreciated this internal jugular, followed by the guidewire. This guidewire we could see going into the superior vena cava in the right atrium. At this point, we enlarged the incision a little bit to place the metal tunneler through another incision that was made just inferior to the cephalic deltopectoral groove. We had attempted prior to the internal jugular to cut down on the deltopectoral groove but this was pretty much unrecognizable as far as anatomical area. We did create a pocket up the reservoir underneath the incision that we had made. We passed a metal tunneler from that incision up to the incision up in the neck area and passed the catheter through there and then placed an introducer under direct visualization fluoroscopically. Once this had been performed, we tried passing the catheter through the introducer but it met with resistance, we were unable to really advance it beyond the tip of the introducer. Fluoroscopically, it appeared to be just inferior to the clavicle. At this point then, I removed the introducer and tried again, waited for a while and tried to dissect out further down and identified the deltopectoral groove which again we found very little evidence of. My suspicion at this time given this is that the patient may have had some injury to the clavicle in the remote past. Although radiographically, when we were imaging, it seemed like the left clavicle appeared to be higher than the right in general. At this point then, I reaccessed the internal jugular again in a similar fashion, placed the guidewire in superior vena cava, and then placed the introducer, followed by the catheter, positioning it without any difficulty. Fluoroscopically, it seemed to be going into the brachiocephalic area where it tunneled back on itself. At this point, I cut the catheter which was coming out of the incision on the left anterior chest wall, cut it to about 30 cm, placed a guidewire through the catheter, and with this, I was able to direct the catheter down into the superior vena cava right atrial area. At this point, I was happy with the positioning, the patient was low Trendelenburg. We cut the catheter about 28 cm, placed a black bolster in the catheter and attached to the reservoir. We aspirated and flushed easily. At this point, we then placed the reservoir in a previously made pocket, sutured it in 3 places with nylon suture. We could easily palpate the prongs of the reservoir since we had defatted some of the subcutaneous tissue. We closed the wound in multiple layers with 2-0 and 3-0 Dexon, 4-0 Monocryl. Steri-Strips applied. Prior to leaving the room, we were able to access and flush the catheter without any problem. We did note that inferior to the 3 prongs, there was a little sharp easily palpated through the skin, although it did not come through skin, I suspect this was the nylon knot that was hold to secure the catheter and I did tell the family about this. The procedure was tolerated well, taken to recovery in good condition. Chest x-ray is pending. I attest to the content of the Intraoperative Record and any orders documented therein. Any exception s are noted below.
[2017-11-07 10:55] VITALS: BP 136/68; PULSE 100; TEMP 36.3; O2SAT 99
== END | disposition home or self-care (01) ==
LOC: C.ACU 06:40
PROVIDERS: ATTEND Surgery
DX: C26.0 Malignant neoplasm of intestinal tract, part unspecified (principal); Z88.5 Allergy status to narcotic agent; Z88.1 Allergy status to other antibiotic agents; Z88.0 Allergy status to penicillin; Z88.2 Allergy status to sulfonamides; Z88.8 Allergy status to other drugs, medicaments and biological substances

== ENCOUNTER 2018-01-02 22:45 | Observation (INO) | payer OTHER ==
[~2018-01-02] VITALS: Ht 172.7 cm; Wt 65.2 kg
[~2018-01-02 22:45] MED LIST changes: -ATROPINE SULFATE 0.1 MG/ML 5ML SYR IV PRN; -BACITRACIN 50000 UNIT VIAL ONE; -EpHEDrine SULFATE INJ 50 MG/ML AMP IV PRN; -FENTANYL CITRATE INJ 50 MCG/1 ML 2 ML VIAL IV PRN; -FENTANYL CITRATE INJ 50 MCG/1 ML 2 ML VIAL ONE; -IBUPROFEN 600 MG TAB ONE; -LACTATED RINGER'S 1000ML 1,000 ML IV SCH; -LIDOCAINE HCL 1% 20 ML VIAL ONE; -LIDOCAINE HCL 2% 2 ML VIAL (20MG/ML) ONE; -MIDAZOLAM HCL 1 MG/ML 2ML VIAL ONE; -NURSING VERBAL MED ORDER ONE; -ONDANSETRON INJ 2 MG/ML 2 ML VIAL IV PRN; -ONDANSETRON INJ 2 MG/ML 2 ML VIAL ONE; -OXYC-57 PO; -OXYCODONE/ACETAMINOPHEN 5-325 TAB PO PRN; -PROPOFOL IV EMULSION 10 MG/ML 20 ML VIAL IV ONE
[2018-01-02] MEDS ORDERED: PROMETHAZINE HCL INJ 12.5 MG in SODIUM CHLORIDE 0.9% 50ML 50 ML IV STA (23:23)
[2018-01-02] MEDS ORDERED: SODIUM CHLORIDE 0.9% 1000ML 1,000 ML IV STA (23:23)
[2018-01-02] MEDS ORDERED: ACETAMINOPHEN IV 100 ML IV STA (23:23)
[2018-01-02] MEDS ORDERED: OPTIRAY 320 IV PRN (23:30)
[2018-01-02] MEDS ORDERED: ONDA4TAB46 PO (23:31)
[2018-01-02] MEDS ORDERED: PROC10TA PO (23:32)
[2018-01-02 23:58] LABS: HEMATOCRIT 36.1 % (37-47); HEMOGLOBIN 11.6 g/dL (12.0-16.0); MEAN CELL VOLUME 74.7 fL (80-100); MEAN CORPUSCULAR HGB CONC 32.1 g/dl (32-36); MEAN PLATELET VOLUME 9.1 fL (7.4-10.4); NUCLEATED RED BLOOD CELL ABS 0.02 K/uL (0-0); PLATELET COUNT 207 K/uL (130-400); RED CELL DISTRIBUTION WIDTH CV 17.4 % (11.5-14.5); RED CELL DISTRIBUTION WIDTH SD 45.3 fL (36.4-46.3); WHITE BLOOD COUNT 9.33 K/uL (4.8-10.8)
[2018-01-03 00:06] LABS: INR 1.2 (0.9-1.1)
[2018-01-03 00:34] LABS: BASO % 0.2 %; BASO ABS # 0.02 K/uL (0-0.2); EOS % 0.1 %; EOS ABS # 0.01 K/uL (0-0.5); IG# 0.04 K/uL (0.00-0.02); LYMPH % 16.6 %; LYMPH ABS # 1.55 K/uL (1.2-3.4); MONO % 11.7 %; MONO ABS # 1.09 K/uL (0.11-0.59); NEUT ABS # 6.62 K/uL (1.4-6.5)
[2018-01-03 00:39] LABS: ALBUMIN 3.1 gm/dl (3.4-5.0); CALCIUM 8.3 mg/dl (8.5-10.1); CREATININE 0.48 mg/dl (0.60-1.20); PHOSPHORUS 2.3 mg/dl (2.5-4.9); POTASSIUM 3.9 mmol/L (3.5-5.1); TOTAL PROTEIN 7.1 gm/dl (6.4-8.2)
[2018-01-03] MEDS ORDERED: ASPIRIN/ALUM/MAGNES/CAL CARB 325 MG TAB PO STA (02:28)
[2018-01-03] MEDS ORDERED: PROMETHAZINE HCL INJ 12.5 MG in SODIUM CHLORIDE 0.9% 50ML 50 ML IV PRN (03:00)
[2018-01-03] MEDS ORDERED: ONDANSETRON INJ 2 MG/ML 2 ML VIAL IV PRN (03:00)
[2018-01-03] MEDS ORDERED: MAGNESIUM HYDROXIDE SUSP 30 ML UDC PO PRN (03:00)
[2018-01-03] MEDS ORDERED: BUDESONIDE INH PRN (03:00)
[2018-01-03] MEDS ORDERED: ALUMINUM/MAGNESIUM/SIMETH (MAALOX MAX) 30 ML UDC PO PRN (03:00)
[2018-01-03] MEDS ORDERED: FEXOFENADINE HCL 180 MG TAB PO PRN (03:00)
[2018-01-03] MEDS ORDERED: ALBUTEROL HFA 8 GM INHALER INH PRN (03:00)
[2018-01-03] MEDS ORDERED: POLYETHYLENE (MIRALAX) 17 GM PACK PO PRN (03:00)
--- NOTE | 2018-01-03 03:26 | History and Physical ---
History & Physical Date & Time of Service: January 03, 2018 at 03:00 Chief Complaint: Vomiting, Nausea, Ab Pain Post Chemo Primary Care Physician: No Doctor, Assigned History of Present Illness Source: patient, hospital records, other 72 y/o F Hx HPL, asthma, colon CA currently receiving chemotherapy. The pt developed nausea and then vomiting following recent chemotherapy. This persisted for several hours prompting her to visit the ER. Administration of Zofran and Compazine led to marginal improvement. Initial labs revealed an elevated troponin. She denies any related symptoms such as CP or SOB and denies a history of cardiovascular disease. Per her oncologist, her current chemo regimen is not associated with cardiotoxicity. Past Medical/Surgical History 1) Colon cancer 2) Asthma - not currently treated 3) HPL Surgical 1) Small bowel resection Family History No pertinent family history Social History Smoking Status: Never Smoker Drug Use: none Marital Status: in relationship Housing status: lives with significant other Occupational Status: retired Immunizations History of Influenza Vaccine: Unknown History of Tetanus Vaccine?: Unknown History of Pneumococcal: Unknown History of Hepatitis B Vaccine: Unknown Allergies Coded Allergies: Codeine (Verified Allergy, Severe, ANAPHYLAXISIS, 01/02/18) Tramadol (Verified Allergy, Severe, "CODED"-ANAPHYLAXISIS, 01/02/18) Ciprofloxacin (Verified Allergy, Unknown, IRRITATION TO IV SITE-RASH, 01/02) PT EXPERIENCED REDNESS, SWELLING, AND ITCHING TO IV SITE WHILE INFUSING IV CIPRO. IRRITATION HAD RESOLVED AFTER INFUSION STOPPED. Morphine and Related (Verified Allergy, Unknown, ANAPHYLAXISIS, 01/02/18) Penicillins (Verified Allergy, Unknown, HIVES, 01/02/18) Sulfa Drugs (Verified Allergy, Unknown, HIVES, 01/02/18) Home Medications Scheduled Pravastatin Sod (Pravastatin Sodium), 10 MG PO HS Prochlorperazine Maleate (Compazine), Unknown Dose PO DIRECTED Scheduled PRN Albuterol Hfa (Ventolin Hfa), 2 PUFFS INH Q6H PRN for PRN Budesonide (Inhalation) (Pulmicort Flexhaler), 2 PUFFS INH BID PRN for PRN Fexofenadine Hcl (Verito Allergy), 1 TAB PO DAILY PRN for Allergic Reaction Ondansetron Hcl (Zofran), Unknown Dose PO DIRECTED PRN for Nausea Review of Systems Constitutional: No fever, No chills, No sweats Eyes: No worsening of vision ENT: No hearing loss, No unusual epistaxis, No nasal symptoms Respiratory: No cough, No sputum, No wheezing Cardiovascular: No chest pain, No orthopnea, No PND Abdomen: + nausea, + vomiting Musculoskeletal: No joint pain Genitourinary - Female: No dysuria, No urinary frequency, No urinary urgency Neurologic: No memory loss, No paralysis Psychiatric: No depression symptoms Endocrine: No fatigue Hematologic / Lymphatic: No abnormal bleeding/bruising, No clotting problems Integumentary: No rash Allergic / Immunologic: No environmental allergies Physical Exam Vital Signs Date Time Temp Pulse Resp B/P (MAP) Pulse Ox O2 Delivery O2 Flow Rate FiO2 01/03/18 01:30 85 20 175/70 96 Room Air 01/03/18 01:23 37.3 01/02/18 22:48 38.0 112 18 149/80 95 Room Air General Appearance: WD/WN, no apparent distress Head: normocephalic Eyes: normal inspection ENT: normal ENT inspection, pharynx normal Neck: supple, no JVD Respiratory/Chest: chest non-tender, lungs clear, normal breath sounds Cardiovascular: regular rate, rhythm, no edema, no gallop Abdomen/GI: normal bowel sounds, non tender, soft Back: normal inspection, no CVA tenderness Extremities/Musculoskelatal: normal inspection, no calf tenderness, normal capillary refill Neurologic/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4 fL Neutrophils (%) (Auto) 71.0 % Lymphocytes (%) (Auto) 16.6 % Monocytes (%) (Auto) 11.7 % Eosinophils (%) (Auto) 0.1 % Basophils (%) (Auto) 0.2 % Neutrophils # (Auto) 6.62 1.4-6.5 K/uL Lymphocytes # (Auto) 1.55 1.2-3.4 K/uL Monocytes # (Auto) 1.09 0.11-0.59 K/uL Eosinophils # (Auto) 0.01 0-0.5 K/uL Basophils # (Auto) 0.02 0-0.2 K/uL RDW Standard Deviation 45.3 36.4-46.3 fL RDW Coefficient of Variation 17.4 11.5-14.5 % Immature Granulocyte % (Auto) 0.4 % Immature Granulocyte # (Auto) 0.04 0.00-0.02 K/uL Nucleated RBC Absolute Count (auto) 0.02 0-0 K/uL Nucleated Red Blood Cells % 0.3 % Ovalocytes 1+ Prothrombin Time 12.7 9.0-12.0 SECONDS Prothromb Time International Ratio 1.2 0.9-1.1 Sodium Level 135 136-145 mmol/L Potassium Level 3.9 3.5-5.1 mmol/L Chloride Level 103 98-107 mmol/L Carbon Dioxide Level 23 21-32 mmol/L Anion Gap 9.0 3-11 mmol/L Blood Urea Nitrogen 6 7-18 mg/dl Creatinine 0.48 0.60-1.20 mg/dl Est Creatinine Clear Calc Drug Dose 110.0 ml/min Estimated GFR () 115.2 Estimated GFR (Non- 99.4 BUN/Creatinine Ratio 11.7 10-20 Random Glucose 103 70-99 mg/dl Calcium Level 8.3 8.5-10.1 mg/dl Phosphorus Level 2.3 2.5-4.9 mg/dl Magnesium Level 1.8 1.8-2.4 mg/dl Total Bilirubin 0.7 0.2-1 mg/dl Aspartate Amino Transf (AST/SGOT) 29 15-37 U/L Alanine Aminotransferase (ALT/SGPT) 17 12-78 U/L Alkaline Phosphatase 115 45-117 U/L Troponin I 0.082 0-0.045 ng/ml Total Protein 7.1 6.4-8.2 gm/dl Albumin 3.1 3.4-5.0 gm/dl Globulin 4.0 2.5-4.0 gm/dl Albumin/Globulin Ratio 0.8 0.9-2 Lipase 107 73-393 U/L Urine Color YELLOW Urine Appearance CLEAR CLEAR Urine pH 7.0 4.5-7.5 Urine Specific Haynes 1.016 1.000-1.030 Urine Protein NEG NEG Urine Glucose (UA) NEG NEG Urine Ketones 1+ NEG Urine Occult Blood NEG NEG Urine Nitrite NEG NEG Urine Bilirubin NEG NEG Urine Urobilinogen NEG NEG Urine Leukocyte Esterase NEG NEG Microbiology Results 01/02/18 Blood Culture, Received Pending 01/02/18 Blood Culture, Received Pending Normal EKG Impression Assessment and Plan 72 y/o F Hx HPL, colon CA currently receiving chemotherapy. The pt developed nausea and then vomiting following recent chemotherapy. This persisted for several hours prompting her to visit the ER. Administration of Zofran and Compazine led to marginal improvement. Initial labs revealed an elevated troponin. She denies any related symptoms such as CP or SOB and denies a history of cardiovascular disease. Per her oncologist, her current chemo regimen is not associated with cardiotoxicity. 1) Nausea and vomiting - pt placed on IVF, clear diet and antiemetics as needed. Initial EKG does not show QT prolongation, however, this should be rechecked if she remains hospitalized over a day. 2) Elevated trop - etiology is not clear. An echo will be obtained to evaluate for wall motion abnorms. She will be assigned to telemetry and we will trend her troponin. ASA will be provided as tolerated and we will increase her statin dose. 3) HPL - cont Zocor 4) Colon CA - receives Avastin, Oxyplatinum, 5 FU - has been tolerating well - f /u with oncology as outpt Full code Heparin prophylaxis Total time for this admit including review of labs, meds, imaging, records - discussion wioth pt and ER attending - 33 min Resuscitation Status VTE Prophylaxis Will order VTE Prophylaxis: Yes
[2018-01-03 04:13] VITALS: BP 156/84; PULSE 84; TEMP 37; O2SAT 99; BMI 21.8
[2018-01-03] MEDS ORDERED: IV FLUIDS COMPLETED PRN (04:30)
[2018-01-03] MEDS: D5NSS + 20MEQ KCL 1,000 ML IV SCH ×2 (05:16→12:44)
[2018-01-03] MEDS ORDERED: HEPARIN SOD 5000 UNIT/0.5 ML CARP SQ SCH (06:00)
--- NOTE | 2018-01-03 07:11 | DIAGNOSTIC IMAGING REPORT ---
MAXILLOFACIAL CT WITH INTRAVENOUS CONTRAST HISTORY: left upper molar pain, fever, immunocompromised TECHNIQUE: Multiaxial CT images of the maxillofacial region were performed reformatted in the coronal plane following the use of intravenous contrast. COMPARISON STUDY: None. FINDINGS: The oral cavity is limited from a technical standpoint due to artifact from the dental implants. No abscess or mass is identified. No fractures within the visualized osseous structures. The paranasal sinuses and mastoid air cells are clear. Mild calcified plaque within the bilateral carotid bifurcations. No cervical lymphadenopathy. The parotid and submandibular glands are symmetric. Prevertebral soft tissues and the epiglottis are normal in thickness. The orbits and visualized brain parenchyma are unremarkable. IMPRESSION: Dental artifact resulting in suboptimal evaluation of the oral cavity. However, no abscess or mass identified. Electronically signed by: Merrill Shelton M.D. 01/03/2018 7:10 AM Dictated Date/Time: 01/03/2018 7:06 AM
[2018-01-03 07:27] VITALS: BP 160/73; PULSE 77; TEMP 37.1; O2SAT 97
--- NOTE | 2018-01-03 07:47 | DIAGNOSTIC IMAGING REPORT ---
CHEST AND ABDOMEN 2 VIEWS HISTORY: fever, chemo pt, nausea. Vomiting. Diarrhea. COMPARISON: Chest 11/07/2017. FINDINGS: Left subclavian Port-A-Cath terminates in the distal SVC. The heart is normal in size. The lungs are clear. No pleural effusions. No pneumothorax. Prior cholecystectomy. No pneumoperitoneum. No pneumatosis. Suture material within the right side of the abdomen consistent with prior bowel anastomosis. Small fluid levels seen throughout the majority of the colon. No dilated loops of bowel to suggest an obstruction. No renal or ureteral calculi. Multiple pelvic phleboliths are noted. IMPRESSION: 1. No acute cardiopulmonary process. 2. No evidence for bowel obstruction. 3. Small fluid levels throughout the majority of the colon. This favors a gastroenteritis. Electronically signed by: Merrill Shelton M.D. 01/03/2018 7:46 AM Dictated Date/Time: 01/03/2018 7:44 AM
[2018-01-03] MEDS: ASPIRIN 81 MG ECTAB PO SCH ×2 (09:00→10:18)
[2018-01-03] MEDS: ATORVASTATIN 20 MG TAB PO SCH ×2 (09:00→10:18)
--- NOTE | 2018-01-03 10:18 | Progress Note ---
Progress Note Date of Service January 03, 2018. (Janina Clark ., PA-C) Progress Note Patient admitted after midnight. Seen and examined by me this morning. Patient reports feeling better. She denies any nausea or vomiting since coming up to the floor this morning. She denies any abdominal pain. She is very fatigued as she did not get any sleep last night. Daughter Stephy at bedside says the patient looks better overall compared to last night. The patient had been febrile on arrival to the ED but denies any further fevers or chills. The patient denies fevers, chills, sweats, chest pain, palpitations, claudication, cough, wheezing, shortness of breath, nausea, vomiting, abdominal pain, dysuria , hematuria, urinary retention, paralysis, weakness, numbness and tingling. Physical exam unremarkable. A/P: Gastroenteritis, likely secondary to chemo--improving -Admit to telemetry for observation. No acute events overnight. Pt in sinus rhythm with HR 70s-90s -D5NSS + 20 mEq KCl at 125 cc/hr -Start clear liquid diet, can decrease IVF if tolerating -Phenergan prn Elevated troponin, likely secondary to demand ischemia--improving -Troponin trending down: 0.082 --> 0.070 -3rd troponin pending -Echo pending -EKG no acute ischemic changes -Continue ASA, statin Colon CA s/p right hemicolectomy - Receives Avastin, Oxyplatinum, 5 FU (this is off week for chemo, due again next Monday) - Follows w/Dr. Kinsey DVT prophylaxis -Heparin 5000 units SC q12h Code Status -Level I, FULL RESUSCITATION STATUS (Janina Clark ., PA-C) Attending Attestation - Pt seen/examined, chart reviewed, care plan d/w ALIDA Clark. I agree w/ the acosta components of her documentation. Pt feeling better today. Asks if she can d/c home. Very tired and fatigued. No sick contacts. No travel. Denies any abd pain. Took immodium at home and thus has not had any stools while here. VSS, Tm of 38 last pm gen - NAD mouth - MMM, no mucositis or thrush heart - RRR lungs - CTA b/l abd - soft, NT, ND, BS+, no HSM chest - port clean, dry ext - no edema, pulses 2+ b/l A/P: stage 4 colon ca s/p hemicolectomy and currently undergoing cancer treatment under the care of Dr. Kinesy suspected gastroenteritis, viral vs bacterial; send stool for c. diff and stool cx if diarrhea recurs dehydration 2nd to gastroenteritis - improved w/ fluids advance diet to full liquids family updated at bedside observe overnight Baldo Gordon MD (Baldo Gordon MD)
[2018-01-03] MEDS ORDERED: NURSING VERBAL MED ORDER ONE ×2 (10:30→16:45)
[2018-01-03 11:25] VITALS: BP 165/75; PULSE 77; TEMP 37; O2SAT 96
[2018-01-03] MEDS: ACETAMINOPHEN 325 MG TAB PO PRN ×2 (11:26→19:54)
--- NOTE | 2018-01-03 13:00 | ECHOCARDIOGRAM REPORT ---
*NOTICE TO RECEIVING [employer] This information is strictly Confidential and protected under [place] law. [place] law prohibits you from making any further disclosure of this information unless further disclosure is expressly permitted by the written consent of the person to whom it pertains or is authorized by law. A general authorization for the release of medical or other information is not sufficient for this purpose. Hospital accepts no responsibility if the information is made available to any other person, INCLUDING THE PATIENT. Interpretation Summary * Name: AMANDA GARCIA Study Date: 01/03/2018 06:22 AM BP: 156/84 mmHg * Patient Location: [facility] HR: 85 * : 1945 (M/d/yyyy) Gender: Female Height: 67 in * Age: 72 yrs Ethnicity: CA Weight: 144 lb * Ordering Physician: Damon Silva * Performed By: Joana Fernandez RCS * * Reason For Study: Troponin Elevation * BSA: 1.8 m2 * -- Conclusions -- * Left ventricular systolic function is normal. * Grade I diastolic dysfunction, (abnormal relaxation pattern). * Right ventricular systolic pressure is normal. Procedure Details * A complete two-dimensional transthoracic echocardiogram was performed (2D, M-mode, Doppler and color flow Doppler). Left Ventricle * The left ventricle is normal in size. * The left ventricular cavity is small. * There is normal left ventricular wall thickness. * Left ventricular systolic function is normal. * Ejection Fraction = 55-60%. * Grade I diastolic dysfunction, (abnormal relaxation pattern). * The left ventricular wall motion is normal. Right Ventricle * The right ventricle is normal in size and function. * The right ventricular systolic function is normal as assessed by tricuspid annular plane systolic excursion (TAPSE) (normal >1.5 cm). Atria * The left atrial size is normal. * Right atrial size is normal. Mitral Valve * The mitral valve anatomy is normal. * Significant mitral regurgitation is absent. Tricuspid Valve * The tricuspid valve is not well visualized, but is grossly normal. * There is trace tricuspid regurgitation. * Right ventricular systolic pressure is normal. Aortic Valve * The aortic valve is normal in structure and function. * The aortic valve is trileaflet. * No hemodynamically significant valvular aortic stenosis. * There is no significant aortic regurgitation. Pulmonic Valve * The pulmonic valve is not well visualized. * Mild pulmonic valvular regurgitation. Pericardium/Pleural * There is no pericardial effusion. Great Vessels * The vena cava is small. MMode 2D Measurements and Calculations IVSd 0.96 cm IVSs 1.2 cm LVIDd 4.4 cm LVIDs 2.5 cm LVPWd 0.95 cm LVPWs 1.3 cm IVS/LVPW 1.0 FS 44.4 % EDV(Teich) 89.4 ml ESV(Teich) 21.6 ml EF(Teich) 75.8 % EDV(cubed) 87.3 ml ESV(cubed) 15.0 ml EF(cubed) 82.8 % % IVS thick 22.4 % % LVPW thick 35.0 % LV mass(C)d 140.5 grams LV mass(C)dI 79.9 grams/m\S\2 LV mass(C)s 87.4 grams LV mass(C)sI 49.7 grams/m\S\2 SV(Teich) 67.8 ml SI(Teich) 38.5 ml/m\S\2 SV(cubed) 72.3 ml SI(cubed) 41.1 ml/m\S\2 Ao root diam 3.3 cm Ao root area 8.7 cm\S\2 ACS 1.5 cm LA dimension 3.5 cm asc Aorta Diam 2.9 cm LA/Ao 1.1 EDV(MOD-sp4) 70.4 ml ESV(MOD-sp4) 26.7 ml EF(MOD-sp4) 62.0 % EDV(MOD-sp2) 98.8 ml ESV(MOD-sp2) 26.2 ml EF(MOD-sp2) 73.4 % SV(MOD-sp4) 43.7 ml SI(MOD-sp4) 24.8 ml/m\S\2 SV(MOD-sp2) 72.5 ml SI(MOD-sp2) 41.2 ml/m\S\2 Doppler Measurements and Calculations MV E max yasmin 57.2 cm/sec MV A max yasmin 111.6 cm/sec MV E/A 0.51 MV P1/2t max yasmin 67.4 cm/sec MV P1/2t 94.3 msec MVA(P1/2t) 2.3 cm\S\2 MV dec slope 209.3 cm/sec\S\2 MV dec time 0.26 sec Ao V2 max 107.9 cm/sec Ao max PG 4.7 mmHg Ao max PG (full) 1.7 mmHg LV V1 max PG 2.9 mmHg LV V1 max 85.5 cm/sec PA V2 max 107.7 cm/sec PA max PG 4.6 mmHg PI max yasmin 154.3 cm/sec PI max PG 9.9 mmHg PI dec slope 136.9 cm/sec\S\2 PI P1/2t 330.2 msec TR max yasmin 141.7 cm/sec
[2018-01-03 13:34] VITALS: Ht 172.7 cm; Wt 65.2 kg
[2018-01-03 15:11] VITALS: BP 163/75; PULSE 75; TEMP 36.9; O2SAT 97
[2018-01-03 19:42] VITALS: BP 173/80; PULSE 100; TEMP 37.6; O2SAT 94
[2018-01-03] MEDS ORDERED: ATORVASTATIN 20 MG TAB PO SCH (21:00)
[2018-01-03] MEDS ORDERED: PRAVASTATIN SOD 10 MG TAB PO SCH (21:00)
[2018-01-03] MEDS ORDERED: D5NSS + 20MEQ KCL 1,000 ML IV SCH (22:00)
[2018-01-03 23:20] VITALS: BP 161/80; PULSE 123; TEMP 37; O2SAT 97
[2018-01-04 03:01] VITALS: BP 166/84; PULSE 85; TEMP 37; O2SAT 96
[2018-01-04 04:44] LABS: HEMATOCRIT 33.7 % (37-47); HEMOGLOBIN 10.7 g/dL (12.0-16.0); MEAN CELL VOLUME 76.6 fL (80-100); MEAN CORPUSCULAR HEMOGLOBIN 24.3 pg (25-34); MEAN CORPUSCULAR HGB CONC 31.8 g/dl (32-36); MEAN PLATELET VOLUME 9.3 fL (7.4-10.4); NUCLEATED RED BLOOD CELL ABS 0.03 K/uL (0-0); PLATELET COUNT 196 K/uL (130-400); RED CELL DISTRIBUTION WIDTH CV 17.7 % (11.5-14.5); WHITE BLOOD COUNT 7.62 K/uL (4.8-10.8)
[2018-01-04 05:06] LABS: CALCIUM 8.2 mg/dl (8.5-10.1); CREATININE 0.48 mg/dl (0.60-1.20); POTASSIUM 3.7 mmol/L (3.5-5.1)
[2018-01-04 06:21] VITALS: BP 166/84; PULSE 81; TEMP 36.5; O2SAT 95
[2018-01-04] MEDS: ASPIRIN 81 MG ECTAB PO SCH (08:05)
--- NOTE | 2018-01-04 10:46 | ONCOLOGY CONSULTATION ---
DATE OF CONSULTATION: 01/04/2018 REASON FOR CONSULTATION: Intractable nausea and vomiting. HISTORY OF PRESENT ILLNESS: Miriam is a very pleasant 72-year-old female patient well known to [facility], currently under Dr. Krish Kinsey's care for recently diagnosed poorly differentiated metastatic colorectal cancer. The patient had received her last dose of FOLFOX chemotherapy several days ago. Shortly thereafter developed nausea and vomiting. Symptoms persisted for several hours, prompting her visit to the Emergency Room. She was also noted to have an elevated troponin. Primary service is suspecting gastroenteritis and is treating her supportively. The patient denies becoming sick from any of her 3 prior courses of chemotherapy. Generally speaking FOLFOX is not known to produce severe nausea and vomiting. However, diarrhea is prevalent particularly after 5-FU administration. The patient has received IV antiemetics and vigorous IV fluid. Clinically, she is feeling much better today and anticipate her returning home shortly. She offers no particular complaints at bedside this morning. PAST MEDICAL HISTORY: 1. Again, positive for metastatic colorectal cancer. 2. Asthma. 3. Hyperlipidemia. PAST SURGICAL HISTORY: Status post right hemicolectomy on 10/10/2017 revealing a 4.5 cm poorly differentiated adenocarcinoma with 2 of 22 lymph nodes positive. During surgery, a peritoneal implant was also noted consistent with stage IV disease. CURRENT MEDICATIONS: Pravastatin 10 mg p.o. at bedtime, Compazine 10 mg p.o. q. 6 hours p.r.n., she also utilizes albuterol, Pulmicort, Verito, and Zofran as needed. ALLERGIES: TO CODEINE, TRAMADOL, CIPROFLOXACIN, MORPHINE, PENICILLINS, SULFA DRUGS. SOCIAL HISTORY: The patient is retired and lives with her significant other, nonsmoker, nondrinker. FAMILY HISTORY: Noncontributory. REVIEW OF SYSTEMS: As per HPI. CONSTITUTIONAL: Negative for fevers, chills, or sweats. She is not anorexic or losing weight. SKIN: No rashes or lesions. No history of dermatosis. HEENT: Negative for headaches, lightheadedness, or dizziness. No acute visual or hearing deficits. No sinus symptoms, sore throat, or dysphagia. LYMPH: No history of lymphoproliferative disease. CARDIAC: No history of coronary artery disease. No current angina or palpitations. PULMONARY: Positive history of asthma. She is not acutely short of breath, dyspneic, or orthopneic. No cough or hemoptysis. GASTROINTESTINAL: Positive for intractable nausea and vomiting. Positive now for diarrhea. Negative for hematochezia, melena, or leela rectal bleeding. GENITOURINARY: No hematuria, dysuria, or urinary incontinence. PSYCHIATRIC: Negative for anxiety, depression, or psychoses. MUSCULOSKELETAL: No arthralgias or myalgias. No muscle weakness. NEUROLOGIC: Negative for seizure, stroke, or migraine headache. HEMATOLOGIC: Positive for treatment-induced anemia. PHYSICAL EXAMINATION: GENERAL: Very pleasant 72-year-old female patient, lying supine in bed, answers questions appropriately, in no acute distress. VITAL SIGNS: Temperature 36.5, pulse 81, respiration 16, blood pressure 166/84. SKIN: Warm, dry, noncyanotic without petechia, rash, or ecchymosis. HEENT: Head atraumatic, normocephalic. Eyes: PERRLA, EOMI. Sclerae nonicteric. No conjunctival injection. Nares patent without rhinorrhea or discharge. Throat clear. Tongue midline. Mucous membranes are moist. NECK: Supple without JVD or thyromegaly. LYMPH: No cervical, supraclavicular, or axillary palpable nodes. HEART: Regular rate and rhythm. No clicks, rubs, murmurs, or gallops. LUNGS: Clear to auscultation bilaterally. ABDOMEN: Soft, nontender, nondistended without palpable hepatosplenomegaly. EXTREMITIES: No calf tenderness or swelling. No clubbing, cyanosis, or edema. NEUROLOGIC: Awake, alert, and oriented x3. Cranial nerves II through XII are intact. LABORATORY DATA: WBC count 7620, hemoglobin 10.7, platelet count 196,000. Sodium 137, potassium 3.7, chloride 107, carbon dioxide 25, creatinine 0.48, BUN 3. RADIOGRAPHIC DATA: KUB negative for bowel obstruction. Small fluid levels throughout the majority of the colon favoring gastroenteritis. IMPRESSION: 1. Probable gastroenteritis. 2. Metastatic colorectal cancer. 3. Intractable nausea and vomiting. PLAN: Miriam is a very pleasant 72-year-old female patient, currently under Dr. Kinsey's management for metastatic colorectal cancer. She recently received her fourth course of FOLFOX chemotherapy and shortly thereafter started to vomit profusely. The patient contacted me by the service and I recommended she come to the Emergency Room mainly because I thought it was unusual to have such profuse vomiting after receiving FOLFOX. The patient has not been this ill on the preceding 3 doses and therefore not likely to suffer DPD deficiency. Agree with current management as patient seems to be markedly improved from admission. I anticipate she will go home within the next 24 hours and followup will be arranged for both brief physical exam and resumption of chemotherapy. I have nothing further to add at this time. Thank you very much for assisting us in the care of this very pleasant patient. If you have questions or concerns, feel free to call me at any time. I will officially sign off unless further assistance is needed. MTDD
[2018-01-04 11:50] VITALS: BP 158/83; PULSE 101; TEMP 36.8; O2SAT 97
[2018-01-04] MEDS ORDERED: PROM5SUP2 PR (14:09)
[2018-01-04] MEDS ORDERED: PROM12.57 PO (14:09)
--- NOTE | 2018-01-04 14:52 | Discharge Instructions ---
Discharge Instructions Date of Service January 04, 2018. Admission Reason for Admission: Intractable Nausea/Vomiting,Troponin I Above Discharge Discharge Diagnosis / Problem: Gastroenteritis, elevated troponin Discharge Goals Goal(s): Decrease discomfort, Improve function, Improve nutritional status, Diagnostic testing Activity Recommendations Activity Limitations: resume your previous activity (as tolerated) . Instructions / Follow-Up Instructions / Follow-Up You were admitted to the hospital with nausea and vomiting and were found to have evidence of gastroenteritis, or inflammation of the intestines, on x-ray. You were also found to have an elevated troponin, which is a cardiac enzyme. You were placed on a gambling monitor which did not reveal any abnormal heart rhythms or acute events. Your troponin levels were checked serially and have been trending down. Your EKGs did not show any acute changes. An echocardiogram, or ultrasound of the heart, was obtained, and this was normal. The elevated troponin was likely related to your acute illness/dehydration rather than a primary heart event. Regarding your gastroenteritis, you were treated with supportive therapy such as IV fluids and anti-nausea medications. As you are now tolerating a diet and your symptoms have resolved, you are medically stable for discharge. Medications: *You have been provided prescriptions for Phenergan 12.5 mg, which you can take up to every 6 hours as needed for nausea and vomiting. Both oral tabs and suppositories have been provided. Please reserve the suppositories for if you are not able to take/keep down the oral pill. *Do not take the Phenergan with Zofran or Compazine. *Continue your other home medications as prescribed. Follow up: *You have been scheduled to follow up with your primary care provider. *Please continue to follow up with oncology as previously scheduled. NOTE: If your rib/left chest pain gets any worse or you develop any shortness of breath, please see a medical provider immediately as this may be a sign of a pulmonary embolus, or clot in the lungs. This condition, though easily treated, can be fatal. Please seek medical attention if you experience fevers, chills, sweats, dizziness/lightheadedness, loss of consciousness, chest pain, shortness of breath, nausea, vomiting, numbness or tingling. Current Hospital Diet Patient's current hospital diet: AHA Diet (Heart Healthy) Discharge Diet Recommended Diet: AHA Diet (Heart Healthy) Pending Studies Studies pending at discharge: yes List of pending studies: Stool cultures Medical Emergencies . Who to Call and When: Medical Emergencies: If at any time you feel your situation is an emergency, please call 911 immediately. . Non-Emergent Contact Non-Emergency issues call your: Primary Care Provider, Oncologist Call Non-Emergent contact if: you have a fever, you have any medication questions . Past History Medical & Surgical History: (1) Intractable nausea and vomiting (2) Troponin I above reference range . "Provider Documentation" section prepared by Janina Clark. .
--- NOTE | 2018-01-04 15:07 | Discharge Summary ---
Discharge Summary Date of Service January 04, 2018. Discharge Summary Admission Date: January 03, 2018 at 03:15 Discharge Date: January 04, 2018 Discharge Disposition: Home Principal Diagnosis: Gastroenteritis Problems/Secondary Diagnoses: Elevated troponin likely myocardial demand ischemia, metastatic colon cancer s/ p right hemicolectomy, asthma, and hyperlipidemia Immunizations: Have You Had Influenza Vaccine: Unknown History of Tetanus Vaccine?: Unknown History of Pneumococcal: Unknown History of Hepatitis B Vaccine: Unknown Procedures: CHEST AND ABDOMEN 2 VIEWS HISTORY: fever, chemo pt, nausea. Vomiting. Diarrhea. COMPARISON: Chest 11/07/2017. FINDINGS: Left subclavian Port-A-Cath terminates in the distal SVC. The heart is normal in size. The lungs are clear. No pleural effusions. No pneumothorax. Prior cholecystectomy. No pneumoperitoneum. No pneumatosis. Suture material within the right side of the abdomen consistent with prior bowel anastomosis. Small fluid levels seen throughout the majority of the colon. No dilated loops of bowel to suggest an obstruction. No renal or ureteral calculi. Multiple pelvic phleboliths are noted. IMPRESSION: 1. No acute cardiopulmonary process. 2. No evidence for bowel obstruction. 3. Small fluid levels throughout the majority of the colon. This favors a gastroenteritis. Echocardiogram: Interpretation Summary * Name: AMANDA GARCIA Study Date: 01/03/2018 06:22 AM BP: 156/84 mmHg * Patient Location: [facility] HR: 85 * : 1945 (M/d/yyyy) Gender: Female Height: 67 in * Age: 72 yrs Ethnicity: CA Weight: 144 lb * Ordering Physician: Damon Silva * Performed By: Joana Fernandez RCS * * Reason For Study: Troponin Elevation * BSA: 1.8 m2 * -- Conclusions -- * Left ventricular systolic function is normal. * Grade I diastolic dysfunction, (abnormal relaxation pattern). * Right ventricular systolic pressure is normal. Procedure Details * A complete two-dimensional transthoracic echocardiogram was performed (2D, M-mode, Doppler and color flow Doppler). Left Ventricle * The left ventricle is normal in size. * The left ventricular cavity is small. * There is normal left ventricular wall thickness. * Left ventricular systolic function is normal. * Ejection Fraction = 55-60%. * Grade I diastolic dysfunction, (abnormal relaxation pattern). * The left ventricular wall motion is normal. Right Ventricle * The right ventricle is normal in size and function. * The right ventricular systolic function is normal as assessed by tricuspid annular plane systolic excursion (TAPSE) (normal >1.5 cm). Atria * The left atrial size is normal. * Right atrial size is normal. Mitral Valve * The mitral valve anatomy is normal. * Significant mitral regurgitation is absent. Tricuspid Valve * The tricuspid valve is not well visualized, but is grossly normal. * There is trace tricuspid regurgitation. * Right ventricular systolic pressure is normal. Aortic Valve * The aortic valve is normal in structure and function. * The aortic valve is trileaflet. * No hemodynamically significant valvular aortic stenosis. * There is no significant aortic regurgitation. Pulmonic Valve * The pulmonic valve is not well visualized. * Mild pulmonic valvular regurgitation. Pericardium/Pleural * There is no pericardial effusion. Great Vessels * The vena cava is small. Medication Reconciliation New Medications: Promethazine (Phenergan ) 12.5 Mg Tab 12.5 MG PO Q6H PRN for Nausea or Vomiting for 3 Days, #12 TAB Promethazine (Phenergan Suppository) 12.5 Mg Supp 12.5 MG AR Q6H PRN for Nausea or Vomiting for 3 Days, #12 SUPP Only use if not able to take oral pill. Continued Medications: Albuterol Hfa (Ventolin Hfa) 200 Puffs/28142 Mcg Aers 2 PUFFS INH Q6H PRN for PRN, #1 INHALER Budesonide (Inhalation) (Pulmicort Flexhaler) 180 Mcg/Act Inh 2 PUFFS INH BID PRN for PRN for 30 Days, #1 INHALER 3 Refills Fexofenadine Hcl (Verito Allergy) 180 Mg Tab 1 TAB PO DAILY PRN for Allergic Reaction Pravastatin Sod (Pravastatin Sodium) 10 Mg Tab 10 MG PO HS Discontinued Medications: Ondansetron Hcl (Zofran) Unknown Strength Tab Unknown Dose PO DIRECTED PRN for Nausea, TAB Prochlorperazine Maleate (Compazine) Unknown Strength Tab Unknown Dose PO DIRECTED for 7 Days, #30 TAB 3 Refills Discharge Exam Patient reports feeling well. She is tolerating a regular diet but only eating small amounts as she has not had solid food since Monday. She denies any nausea or vomiting today. She did have one large bowel movement this morning. The patient notes an aching pain in her left lateral ribs that occurs when she sits up, coughs or takes deep breaths. She denies pain at rest. She states this pain started while she was violently retching and attributes it to musculoskeletal pain. She denies any shortness of breath or palpitations. The patient denies fevers, chills, sweats, palpitations, claudication, cough, wheezing, shortness of breath, nausea, vomiting, abdominal pain, dysuria, hematuria, urinary retention, paralysis, weakness, numbness and tingling. Constitutional: No fever, No chills, No sweats Eyes: No worsening of vision, No eye pain, No diplopia ENT: No hearing loss, No nasal symptoms, No trouble swallowing Respiratory: No cough, No wheezing, No shortness of breath Cardiovascular: +Pleuritic chest pain/associated with coughing. No claudication, No palpitations Abdomen: No pain, No nausea, No vomiting Musculoskeletal: No joint pain, No muscle pain, No swelling Genitourinary - Female: No dysuria, No urinary retention, No hematuria Neurologic: No paralysis, No weakness, No numbness/tingling Integumentary: No rash, No itch, No color change General appearance: Well-developed, well-nourished, no apparent distress Head: Normocephalic, atraumatic Eyes: Normal inspection, PERRL, EOMI ENT: Normal ENT inspection, hearing grossly normal, pharynx normal Neck: Supple, no JVD, trachea midline Respiratory/Chest: Lungs clear to auscultation, normal breath sounds, no respiratory distress Cardiovascular: Regular rate & rhythm, no gallop, no murmur Abdomen/GI: Normal bowel sounds, non-tender, soft Extremities/Musculoskeletal: Normal inspection, no calf tenderness, no pedal edema Neurological/Psych: Alert, normal mood/affect, oriented x 3 Skin: Normal color, warm/dry, no rash Hospital Course 72 y/o female with a history of metastatic colon cancer s/p right hemicolectomy , asthma, and HLD who presents persistent nausea and vomiting as well as an elevated troponin. Gastroenteritis, likely secondary to viral illness vs chemo--improving -Admit to telemetry for observation. Pt in sinus rhythm with HR 80s-90s overnight -IVF d/c'd as tolerating regular diet -Chest/abdomen x-ray favors gastroenteritis -C diff negative -Stool cultures pending -Phenergan prn. Gave pt scripts for Phenergan 12.5 mg PO/AR q6h prn nausea/ vomiting for a few days, although her N/V seem resolved Elevated troponin, likely secondary to demand ischemia--resolving -Troponin trending down: 0.082 --> 0.070 --> 0.031 -Echo shows EF 55-60%. Grade I diastolic dysfunction. No WMA. -EKG no acute ischemic changes -Continue ASA, statin Pleuritic chest pain--pt believes due to vomiting, states this occurred only after she had been vomiting for a while -Advised pt to seek medical attention if pain persists/worsens or she develops shortness of breath -Given malignancy, she is at increased risk of thromboembolism, and pleuritic pain could be due to a PE but she had NO signs of PE while hospitalized Colon CA s/p right hemicolectomy -Receives Avastin, Oxyplatinum, 5 FU (this is off week for chemo, due again next Monday) -Follows w/Dr. Kinsey -Oncology consulted per pt request, does not believe gastroenteritis to be secondary to chemo when she had tolerated 3 previous sessions fine before Attending Attestation & Discharge Note - Pt seen/examined, chart reviewed, care plan d/w ALIDA Clark. I agree w/ the acosta components of her discharge summary. 72yo female with h/o stage 4 colon ca, currently undergoing chemotherapy, who presented with nausea and emesis. During her stay was noted to have low-grade fevers (highest 38 degrees). Blood cx's, stool cx, and c. diff toxin were all negative. Her GI symptoms improved quickly and she was able to eat/drink without difficulty prior to discharge. Her presenting illness was thought to be due to a viral gastroenteritis rather than her recent chemo given the low-grade fevers and such. Discharge exam - gen - nad mouth - MMM, no thrush or lesions neck - no JVD heart - RRR, s1, s2 lungs - CTA b/l abd - soft, NT, ND, BS+, no HSM ext - no edema The patient complained of a mild, pleuritic discomfort over the left lower costal margin intermittently during the stay. She reports the pain had started while she had had emesis at home. She denied ANY dyspnea and O2 sats were stable her entire course. The pain was positional at times as well. Although she is at risk of VTE it was felt that the pain was musculoskeletal in origin rather than due to a PE. Baldo Gordon MD Total Time Spent: Greater than 30 minutes This includes examination of the patient, discharge planning, medication reconciliation, and communication with other providers. Discharge Instructions Please refer to the electronic Patient Visit Report (Discharge Instructions) for additional information. Additional Copies To Rosalba Gutierrez M.D.; Angel Luis Kinsey MD
== END 2018-01-04 16:20 | disposition home or self-care (01) ==
LOC: C.EDB 22:46 → C.2T 01-03 03:15 → ENRESERV 01-03 03:15 → CANRESERV 01-03 03:15 → CANBEDREQ 01-03 03:19 → ENRESERV 01-03 03:37
PROVIDERS: ADMIT Internal Medicine; ATTEND Internal Medicine
DX: K52.9 Noninfective gastroenteritis and colitis, unspecified (principal); R79.89 Other specified abnormal findings of blood chemistry; C18.2 Malignant neoplasm of ascending colon; Z90.49 Acquired absence of other specified parts of digestive tract; J45.909 Unspecified asthma, uncomplicated; E78.5 Hyperlipidemia, unspecified; Z79.899 Other long term (current) drug therapy; Z88.0 Allergy status to penicillin; Z88.1 Allergy status to other antibiotic agents; Z88.2 Allergy status to sulfonamides; Z88.5 Allergy status to narcotic agent